=== PATIENT | female | born 1990 | race Caucasian/White ===

== ENCOUNTER 2017-04-10 16:30 | Emergency (ER) | payer OTHER ==
[~2017-04-10] VITALS: Ht 182.9 cm; Wt 100.4 kg
[2017-04-10 16:37] VITALS: Ht 182.9 cm; Wt 100.4 kg
--- NOTE | 2017-04-10 17:07 | EMERGENCY ROOM VISIT NOTE ---
History First contact with patient: 16:44 Chief Complaint: ABDOMINAL PAIN Stated Complaint: ABDOMINAL PAIN History of Present Illness The patient is a 26 year old female who presents to the Emergency Room with complaints of abdominal pain. The pain started at about 8pm last night. The pain was initially a 2-3/10, and thought it was normal cramping (very similar in nature to her cramps with her period). Went to sleep but woke up at 3am with severe 10/10 pain, and was very nauseous so went to the bathroom and vomited. She tried to sleep it off and was woken up at 11am when the pain continued, she took ibuprofen but it did not help with the pain. She went to [facility], and when they saw the degree of the pain and it was in the pelvic region, she recommended she go to the ED. Denies chest pain, constipation, diarrhea, shortness of breath, cough. She had a Mirena placed March 13. She has had constant spotting since having the Mirena placed. Her last urine was March 07. She had a urine done at the time placement and it was negative. The last time she was sexually active was months ago. female, all vaginal births. Last child was conceived while on control. Patient denies burning with urination, frequency of urination, or strange odor of urine. Review of Systems See HPI for pertinent positives and negatives. A total of ten systems were reviewed and were otherwise negative. Family History Mom: Thyroid removal Father: Cholecystectomy Social History Smoking Status: Current Every Day Smoker (1/2 pack per day) Smokeless Tobacco Use: No Alcohol Use: occasionally Drug Use: none Marital Status: single Current/Historical Medications Scheduled Duloxetine Hcl (Cymbalta), 60 MG PO DAILY Ibuprofen (Advil), 400-600 MG PO Q6H Quetiapine Fumarate (Seroquel), Unknown Dose PO DAILY Allergies Coded Allergies: No Known Allergies (Unverified , 04/10/17) Physical Exam Vital Signs Date Time Temp Pulse Resp B/P Pulse Ox O2 Delivery O2 Flow Rate FiO2 04/10/17 16:37 37.1 74 18 124/67 100 Room Air Physical Exam GENERAL: Awake, alert, well-appearing, in no distress HENT: Normocephalic, atraumatic. Oropharynx unremarkable. EYES: Normal conjunctiva. Sclera non-icteric. NECK: Supple. No nuchal rigidity. FROM. No JVD. RESPIRATORY: Clear to auscultation. CARDIAC: Regular rate, normal rhythm. Extremities warm and well perfused. Pulses equal. ABDOMEN: Soft, non-distended. Tenderness over pelvic region. Negative Snowden's Sign. No rebound, no guarding. Tenderness in the RLQ and LLQ with suprapubic tenderness as well, most severe at midline. No palpable masses or pulsations. RECTAL: Deferred. MUSCULOSKELETAL: Chest examination reveals no tenderness. The back is symmetrical on inspection without obvious abnormality. There is no CVA tenderness to palpation. No joint edema. LOWER EXTREMITIES: Calves are equal size bilaterally and non-tender. No edema. No discoloration. NEURO: Normal sensorium. No sensory or motor deficits noted. SKIN: No rash or jaundice noted. Medical Decision & Procedures Laboratory Results 04/10/17 17:30 Red Blood Count 4.17, Mean Corpuscular Volume 75.1, Mean Corpuscular Hemoglobin 22.3, Mean Corpuscular Hemoglobin Concent 29.7, Mean Platelet Volume 8.7, Neutrophils (%) (Auto) 61.9, Lymphocytes (%) (Auto) 27.4, Monocytes (%) (Auto) 5.2, Eosinophils (%) (Auto) 4.5, Basophils (%) (Auto) 1.0, Neutrophils # (Auto) 4.29, Lymphocytes # (Auto) 1.90, Monocytes # (Auto) 0.36, Eosinophils # (Auto) 0.31, Basophils # (Auto) 0.07 04/10/17 17:30 Test 04/10/17 17:15 04/10/17 17:30 04/10/17 20:40 Urine Color YELLOW Urine Appearance CLOUDY (CLEAR) Urine pH 6.0 (4.5-7.5) Urine Specific Thomas 1.014 (1.000-1.030) Urine Protein NEG (NEG) Urine Glucose (UA) NEG (NEG) Urine Ketones NEG (NEG) Urine Occult Blood 3+ (NEG) Urine Nitrite NEG (NEG) Urine Bilirubin NEG (NEG) Urine Urobilinogen NEG (NEG) Urine Leukocyte Esterase LARGE (NEG) Urine WBC (Auto) >30 /hpf (0-5) Urine RBC (Auto) >30 /hpf (0-4) Urine Hyaline Casts (Auto) 5-10 /lpf (0-5) Urine Epithelial Cells (Auto) >30 /lpf (0-5) Urine Bacteria (Auto) 1+ (NEG) Urine Test NEG (NEG) White Blood Count 6.93 K/uL (4.8-10.8) Red Blood Count 4.17 M/uL (4.2-5.4) Hemoglobin 9.3 g/dL (12.0-16.0) Hematocrit 31.3 % (37-47) Mean Corpuscular Volume 75.1 fL (80-100) Mean Corpuscular Hemoglobin 22.3 pg (25-34) Mean Corpuscular Hemoglobin Concent 29.7 g/dl (32-36) Platelet Count 273 K/uL (130-400) Mean Platelet Volume 8.7 fL (7.4-10.4) Neutrophils (%) (Auto) 61.9 % Lymphocytes (%) (Auto) 27.4 % Monocytes (%) (Auto) 5.2 % Eosinophils (%) (Auto) 4.5 % Basophils (%) (Auto) 1.0 % Neutrophils # (Auto) 4.29 K/uL (1.4-6.5) Lymphocytes # (Auto) 1.90 K/uL (1.2-3.4) Monocytes # (Auto) 0.36 K/uL (0.11-0.59) Eosinophils # (Auto) 0.31 K/uL (0-0.5) Basophils # (Auto) 0.07 K/uL (0-0.2) RDW Standard Deviation 44.1 fL (36.4-46.3) RDW Coefficient of Variation 16.0 % (11.5-14.5) Immature Granulocyte % (Auto) 0.0 % Immature Granulocyte # (Auto) 0.00 K/uL (0.00-0.02) Anion Gap 4.0 mmol/L (3-11) Est Creatinine Clear Calc Drug Dose 195.0 ml/min Estimated GFR () 147.4 Estimated GFR (Non- 127.2 BUN/Creatinine Ratio 12.1 (10-20) Calcium Level 8.4 mg/dl (8.5-10.1) Total Bilirubin 0.2 mg/dl (0.2-1) Direct Bilirubin < 0.1 mg/dl (0-0.2) Aspartate Amino Transf (AST/SGOT) 9 U/L (15-37) Alanine Aminotransferase (ALT/SGPT) 18 U/L (12-78) Alkaline Phosphatase 66 U/L (45-117) Total Protein 7.2 gm/dl (6.4-8.2) Albumin 3.6 gm/dl (3.4-5.0) Lipase 103 U/L (73-393) Medications Administered Medications (Trade) Dose Ordered Sig/Elder Route Start Time Stop Time Status Last Admin Dose Admin Hydromorphone HCl (Dilaudid Inj) 1 mg NOW STAT IV 04/10/17 18:11 04/10/17 18:13 DC 04/10/17 18:28 1 MG Ondansetron HCl (Zofran Inj) 4 mg NOW STAT IV 04/10/17 18:11 04/10/17 18:13 DC 04/10/17 18:27 4 MG Medical Decision Patient is a 26 year old female that presents with a 1 day history of pelvic tenderness Etiologies such as appendicitis, diverticulitis, obstruction, inflammatory bowel disease, renal colic, PUD, biliary pathology, pancreatitis, mesenteric ischemia, aortic pathology, infections, genitourinary, UTI, perforated viscus, as well as others were entertained. - CBC - CMP - LFTs - Lipase - Transvaginal Ultrasound - Abdominal CT - 1mg IV Dilaudid for Pain, 4mg IV Zofran for Nausea - Lab work showed no contributory findings - Transvaginal US showed 7.6 cm left adnexal cyst likely ovarian. This contains no septations or mural nodules. 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
--- NOTE | 2017-04-10 17:24 | EMERGENCY ROOM VISIT NOTE ---
ED Visit Note First contact with patient: 16:44 Resident Physician Supervision Note: I interviewed and examined the patient. Discussed with Dr. Galarza and agree with findings and plan as documented in the note. Documented By: Victor Manuel Coello Allergies Coded Allergies: No Known Allergies (Unverified , 04/10/17) Vital Signs Date Time Temp Pulse Resp B/P Pulse Ox O2 Delivery O2 Flow Rate FiO2 04/10/17 16:37 37.1 74 18 124/67 100 Room Air Laboratory Results Test 04/10/17 17:13 04/10/17 17:15 Departure Information Referrals No Doctor, Assigned (PCP) Patient Instructions My [facility] [address]
[2017-04-10 17:30] LABS: URINE APPEARANCE CLOUDY (CLEAR); URINE BILIRUBIN NEG (NEG); URINE COLOR YELLOW; URINE EPITHELIAL CELL AUTO >30 /lpf (0-5); URINE NITRITE NEG (NEG); URINE SPECIFIC GRAVITY 1.014 (1.000-1.030); UROBILINOGEN NEG (NEG)
[2017-04-10 17:32] LABS: MANUAL MICROSCOPIC REQUIRED? NO; REVIEW REQ? NO
[2017-04-10 17:40] LABS: BASO ABS # 0.07 K/uL (0-0.2); COMPLETE YES; EOS % 4.5 %; HEMATOCRIT 31.3 % (37-47); LYMPH % 27.4 %; MEAN CELL VOLUME 75.1 fL (80-100); MEAN CORPUSCULAR HEMOGLOBIN 22.3 pg (25-34); MEAN CORPUSCULAR HGB CONC 29.7 g/dl (32-36); MEAN PLATELET VOLUME 8.7 fL (7.4-10.4); MONO % 5.2 %; NEUT % 61.9 %; PLATELET COUNT 273 K/uL (130-400); RED BLOOD COUNT 4.17 M/uL (4.2-5.4); WHITE BLOOD COUNT 6.93 K/uL (4.8-10.8)
[2017-04-10 17:58] LABS: ALT/SGPT 18 U/L (12-78); AST/SGOT 9 U/L (15-37); BLOOD UREA NITROGEN 7 mg/dl (7-18); BUN/CREATININE RATIO 12.1 (10-20); CALCIUM 8.4 mg/dl (8.5-10.1); CARBON DIOXIDE 29 mmol/L (21-32); CHLORIDE 108 mmol/L (98-107); CREATININE 0.58 mg/dl (0.60-1.20); GLUCOSE 103 mg/dl (70-99); POTASSIUM 3.6 mmol/L (3.5-5.1); SODIUM 141 mmol/L (136-145)
[2017-04-10 18:01] LABS: ALKALINE PHOSPHATASE 66 U/L (45-117)
[2017-04-10] MEDS ORDERED: ONDANSETRON INJ 2 MG/ML 2 ML VIAL IV STA (18:11)
[2017-04-10] MEDS ORDERED: HYDROmorphone INJ 1 MG/ML SYR IV STA (18:11)
[2017-04-10] MEDS ORDERED: DULO60CA44 PO (18:31)
[2017-04-10] MEDS ORDERED: IBUP-1050 PO (18:31)
[2017-04-10] MEDS ORDERED: QUET1TAB30 PO (18:31)
--- NOTE | 2017-04-10 19:33 | DIAGNOSTIC IMAGING REPORT ---
EXAMINATION: PELVIC ULTRASOUND (transabdominal and endovaginal scanning) CLINICAL HISTORY: Pelvic Pain COMPARISON STUDY: None FINDINGS: The uterus measured 9.9 x 5 x 7.3 cm.. The endometrial stripe measured 2 mm. An IUD is visualized. The right ovary measured 26 x 18 x 20 mm. The left ovary measured 8 x 5.9 x 7.5 cm. There is a 7.6 cm left adnexal cyst likely ovarian. This contains no definite septations or mural nodules.. There is no ultrasonographic evidence of ovarian torsion. It should be noted that ovarian torsion can be present with normal Doppler ultrasonographic findings. There is a small amount of free fluid within the cul-de-sac, and adjacent to the presumed left ovarian cyst. IMPRESSION: 7.6 cm left adnexal cyst likely ovarian. This contains no septations or mural nodules. Gynecological follow up is recommended. Electronically signed by: Severino Obrien M.D. 04/10/2017 7:32 PM Dictated Date/Time: 04/10/2017 7:28 PM
[2017-04-10] MEDS ORDERED: OPTIRAY 320 IV PRN (19:45)
--- NOTE | 2017-04-10 20:21 | DIAGNOSTIC IMAGING REPORT ---
CT ABD/PELVIS IV AND ORAL CONT CLINICAL HISTORY: Lower abdominal pain COMPARISON STUDY: Ultrasound dated 04/10/2017 TECHNIQUE: Following the IV administration of 116 mL of Optiray-320, CT scan of the abdomen and pelvis was performed from the lung bases to the proximal femurs. Images are reviewed in the axial, sagittal, and coronal planes. IV contrast was administered without complication. CT DOSE: 769.02 mGy.cm FINDINGS: Lower chest: The heart is normal in size and configuration, without pericardial effusion. The lung bases and pleural spaces are clear. Liver: The contrast-enhanced liver is normal in size, contour, and attenuation. There is no intrahepatic biliary ductal dilatation. The hepatic veins and portal veins are patent. Gallbladder: Unremarkable. Spleen: Normal in size and attenuation. Pancreas: Unremarkable. Adrenal glands: Unremarkable. Kidneys: There is symmetric renal cortical enhancement. The kidneys are normal in size without hydronephrosis. Bowel: There are no transition zones indicate bowel obstruction. The appendix appears normal. There is no acute diverticulitis. Peritoneum: There is no intraperitoneal free air or abdominal ascites. There is a 3 mm anterior peritoneal nodule as visualized on image #[id number]. This is of questionable clinical significance. Vasculature: The abdominal aorta is normal in course and caliber. Adenopathy: None. Pelvic viscera: There is a 7.6 cm left adnexal cyst located posterior lateral to the uterus to the left of midline. This is likely of ovarian origin. And IUD is visualized within the uterus. Skeletal structures: No destructive osseous lesions are seen. IMPRESSION: 1. No evidence of bowel obstruction. No evidence of free air 2. Normal appendix 3. 7.6 cm left pelvic cyst, likely ovarian. Gynecological follow-up is recommended Electronically signed by: Severino Obrien M.D. 04/10/2017 8:20 PM Dictated Date/Time: 04/10/2017 8:16 PM
[2017-04-10] MEDS ORDERED: OXYC-57 PO (20:52)
[2017-04-10] MEDS ORDERED: PERCOCET HOME PACK PO ONE (21:00)
[2017-04-10 21:40] VITALS: BP 111/58; PULSE 60; TEMP 37.1; O2SAT 99
[2017-04-13 11:39] LABS: CHLAMYDIA TRACH RNA*** DETECTED (NOT DETECTED); GC (NEIS GONORRHOEAE)RNA** NOT DETECTED (NOT DETECTED)
== END 2017-04-10 21:41 | disposition home or self-care (01) ==
LOC: C.EDB 16:31
DX: N83.202 Unspecified ovarian cyst, left side (principal); F17.210 Nicotine dependence, cigarettes, uncomplicated; Z79.899 Other long term (current) drug therapy